=== PATIENT | male | born 1960 | race Caucasian/White ===

== ENCOUNTER → 2016-06-29 | Outpatient (CLI) | payer BC ==
[~2016-06-29] MED LIST: HYDR25TA4 PO; MULT-506 PO; PRLSR20 PO; VITACAP26 PO; ZOLP5TAB PO
[2016-06-29 09:42] LABS: BASO % 0.3 %; BASO ABS # 0.03 K/uL (0-0.2); COMPLETE YES; EOS % 0.7 %; HEMATOCRIT 42.2 % (42-52); IG% 0.3 %; LYMPH % 37.3 %; LYMPH ABS # 3.61 K/uL (1.2-3.4); MEAN CELL VOLUME 90.4 fL (80-100); MEAN CORPUSCULAR HEMOGLOBIN 31.7 pg (25-34); MEAN CORPUSCULAR HGB CONC 35.1 g/dl (32-36); MEAN PLATELET VOLUME 10.6 fL (7.4-10.4); MONO % 7.5 %; NEUT % 53.9 %; PLATELET COUNT 244 K/uL (130-400); RED BLOOD COUNT 4.67 M/uL (4.7-6.1); WHITE BLOOD COUNT 9.68 K/uL (4.8-10.8)
[2016-06-29 10:05] LABS: ALT/SGPT 30 U/L (12-78); BLOOD UREA NITROGEN 19 mg/dl (7-18); BUN/CREATININE RATIO 15.8 (10-20); CALCIUM 9.2 mg/dl (8.5-10.1); CARBON DIOXIDE 27 mmol/L (21-32); CHLORIDE 103 mmol/L (98-107); CHOLESTEROL 240 mg/dl (0-200); GLUCOSE 78 mg/dl (70-99); POTASSIUM 3.2 mmol/L (3.5-5.1); SODIUM 141 mmol/L (136-145); TRIGLYCERIDES 256 mg/dl (0-150); VERY LOW DENSITY LIPOPROT CALC 51 mg/dl
[2016-06-29 10:15] LABS: ALB/GLOB RATIO 1.5 (0.9-2); ALKALINE PHOSPHATASE 52 U/L (45-117); AST/SGOT 17 U/L (15-37); CHOLESTEROL/HDL RATIO 4.9; HDL CHOLESTEROL 49 mg/dl; LDL CHOLESTEROL CALCULATED 140 mg/dl
== END | disposition home or self-care (01) ==
LOC: C.LAB 07:15
PROVIDERS: ATTEND Internal Medicine Pulmonary Disease
DX: R51 Headache (principal)

== ENCOUNTER → 2016-08-17 | Outpatient (CLI) | payer OTHER, BC ==
--- NOTE | 2016-08-17 12:02 | DIAGNOSTIC IMAGING REPORT ---
PA CHEST WITH LEFT-SIDED RIB SERIES CLINICAL HISTORY: Recent fall with left-sided chest wall pain. FINDINGS: A PA chest radiograph with 4 additional views from a left-sided rib series are obtained. No prior studies are available for comparison at the time of dictation. The cardiomediastinal silhouette is unremarkable. The lungs and pleural spaces are clear. No pneumothorax is seen. Degenerative change is noted throughout the thoracic spine. There is a nondistracted left posterior 11th rib fracture seen on the rib series. No additional rib fracture is suspected. The remainder of the bony thorax is grossly intact. IMPRESSION: 1. The lungs are clear. 2. There is a nondistracted left posterior 11th rib fracture. Electronically signed by: Branden Gamboa M.D. 08/17/2016 12:00 PM Dictated Date/Time: 08/17/2016 11:58 AM
== END | disposition home or self-care (01) ==
LOC: C.RAD1850 11:23
PROVIDERS: ATTEND Nurse Practitioner Adult Health
DX: S22.32XA Fracture of one rib, left side, initial encounter for closed fracture (principal); X58.XXXA Exposure to other specified factors, initial encounter